=== PATIENT | female | born 1950 | race Two or more races ===

== ENCOUNTER 2016-05-27 09:31 | Inpatient (IN) | payer MEDICARE, OTHER ==
[~2016-05-27] VITALS: Ht 149.9 cm; Wt 66.9 kg
[~2016-05-27 09:31] MED LIST: ALEN70TA55 PO; ASPI81CH43 PO; CALCTAB25 PO; FOLI1TAB51 PO; LOSA100T27 PO; METO25TA62 PO; PANT40TA2 PO; TEMA30CA PO
[2016-05-27 10:58] LABS: Basophils # (auto) 0.1 uL; Basophils % (auto) 0.9 % (0.0-2.0); Eosinophils # (auto) 0 uL; Eosinophils % (auto) 0.2 % (0.0-7.0); Hematocrit 37.9 % (36.0-46.0); Hemoglobin 12.8 g/dL (12.2-16.2); Lymphocytes % (auto) 7.9 % (10.0-50.0); Mean Corpuscular Hemoglobin 32.5 pg (28.0-32.0); Mean Corpuscular Hgb Conc. 33.9 g/dL (32.0-36.0); Mean Platelet Volume 10.3 fL (7.4-10.4); Monocytes # (auto) 1.1 uL; Monocytes % (auto) 8.8 % (0.0-12.0); Neutrophils # (auto) 10.6 uL; Neutrophils % (auto) 82.2 % (37.0-80.0); Platelet Count (auto) 202 10^3/uL (140-450); Red Cell Distribution Width 16.3 % (11.6-16.0); White Blood Cell 12.8 10^3/uL (4.4-10.8)
[2016-05-27 11:27] LABS: Albumin 2.3 g/dL (3.4-5.0); BUN/Creatinine Ratio 16.4; Bilirubin, Total 2.3 mg/dL (0.2-1.0); Calcium 8.6 mg/dL (8.5-10.1); Total Protein 6.4 g/dL (6.4-8.2)
[2016-05-27 11:35] LABS: Potassium 2.1 mmol/L (3.5-5.1)
[2016-05-27] MEDS ORDERED: POTASSIUM CHL 10% (20 MEQ/15ML) ORAL SOLN PO ONE (11:45)
[2016-05-27] MEDS ORDERED: ONDANSETRON HCL 4 MG/2 ML VIAL ONE (11:59)
[2016-05-27] MEDS ORDERED: SODIUM CHLORIDE 0.9% 1,000 ML IVB ONE (12:03)
[2016-05-27] MEDS ORDERED: ONDANSETRON HCL 4 MG/2 ML VIAL IV ONE (12:15)
[2016-05-27 12:50] LABS: Magnesium 2.3 mg/dL (1.6-2.6)
[2016-05-27 14:13] LABS: Urine Bilirubin Negative (Negative); Urine Color Yellow (Yellow); Urine Glucose Normal (Normal); Urine Ketone Negative (Negative); Urine Nitrite Negative (Negative); Urine RBC 7 /hpf (0 - 4); Urine Squamous Epithelial Cell MOD /hpf (<5); Urine WBC Clumps PRESENT /hpf (None Seen)
[2016-05-27 14:15] LABS: Urine Blood 1+ /uL (Negative)
[2016-05-27] MEDS ORDERED: cefTRIAXone 1GM/50ML D5W 50 ML IV ONE (16:00)
[2016-05-27] MEDS ORDERED: TEMAZEPAM 15 MG CAP PO PRN (17:00)
[2016-05-27] MEDS ORDERED: cloNIDine HCL 0.1 MG TAB PO PRN (17:00)
[2016-05-27] MEDS ORDERED: MORPHINE SULF INJ 2 MG/ML SYRINGE 1ML IV PRN (17:00)
[2016-05-27] MEDS ORDERED: DOCUSATE SOD 100 MG CAP PO PRN (17:00)
[2016-05-27] MEDS ORDERED: PANTOPRAZOLE SODIUM 40 MG/10 ML VIAL IV ONE (17:00)
[2016-05-27] MEDS ORDERED: ACETAMINOPHEN 325 MG TAB PO PRN (17:00)
[2016-05-27] MEDS ORDERED: FOLIC ACID 1 MG TAB PO ONE (17:30)
[2016-05-27] MEDS ORDERED: MULTIPLE VITAMIN TAB PO ONE (17:30)
[2016-05-27] MEDS: CALCIUM W/VIT D (600MG/400IU) TAB PO SCH (17:41)
[2016-05-27] MEDS: SODIUM CHLORIDE 0.9% 1,000 ML IV SCH (17:41)
[2016-05-27 21:10] LABS: Calcium 8.2 mg/dL (8.5-10.1)
[2016-05-27 21:13] LABS: BUN/Creatinine Ratio 12.5
[2016-05-27 21:15] LABS: Potassium 2.4 mmol/L (3.5-5.1)
[2016-05-27 21:39] VITALS: BP 102/64
[2016-05-27] MEDS: HYDROcodone-ACET 5/325MG TAB PO PRN (21:49)
[2016-05-27] MEDS: metroNIDAZOLE 500MG/100ML 100 ML IV SCH (21:50)
[2016-05-27 22:00] VITALS: BP 113/66
[2016-05-27] MEDS ORDERED: FAMOTIDINE 20 MG TAB PO SCH (22:00)
[2016-05-27] MEDS ORDERED: POTASSIUM CHL 20MEQ/100ML 100 ML IV ONE ×2 (22:15→23:15)
[2016-05-27] MEDS ORDERED: POTASSIUM CHL 20 Meq TABLET PO ONE (22:15)
[2016-05-28] MEDS: ONDANSETRON HCL 4 MG/2 ML VIAL IV PRN ×3 (00:33→17:11)
[2016-05-28] MEDS: SODIUM CHLORIDE 0.9% 1,000 ML IV SCH ×3 (01:16→17:10)
[2016-05-28 05:00] VITALS: BP 100/68
[2016-05-28] MEDS: metroNIDAZOLE 500MG/100ML 100 ML IV SCH ×3 (06:31→22:01)
[2016-05-28] MEDS: HYDROcodone-ACET 5/325MG TAB PO PRN ×3 (06:39→21:34)
[2016-05-28 06:42] LABS: Basophils # (auto) 0 uL; Basophils % (auto) 0.3 % (0.0-2.0); Eosinophils # (auto) 0.1 uL; Eosinophils % (auto) 0.8 % (0.0-7.0); Hemoglobin 11.6 g/dL (12.2-16.2); Lymphocytes # (auto) 1.9 uL; Lymphocytes % (auto) 18.7 % (10.0-50.0); Mean Corpuscular Hemoglobin 32.7 pg (28.0-32.0); Mean Corpuscular Volume 96.1 fL (80.0-100.0); Mean Platelet Volume 11.1 fL (7.4-10.4); Monocytes # (auto) 1.4 uL; Monocytes % (auto) 14.1 % (0.0-12.0); Neutrophils # (auto) 6.8 uL; Neutrophils % (auto) 66.1 % (37.0-80.0); Platelet Count (auto) 198 10^3/uL (140-450); Red Cell Distribution Width 16.6 % (11.6-16.0); White Blood Cell 10.3 10^3/uL (4.4-10.8)
[2016-05-28] MEDS: CALCIUM W/VIT D (600MG/400IU) TAB PO SCH ×2 (08:00→17:11)
[2016-05-28 08:19] VITALS: BP 107/67
[2016-05-28 08:40] LABS: BUN/Creatinine Ratio 14.5; Bilirubin, Total 1.7 mg/dL (0.2-1.0); Calcium 8.1 mg/dL (8.5-10.1); Potassium 3.5 mmol/L (3.5-5.1); Total Protein 5.6 g/dL (6.4-8.2)
[2016-05-28] MEDS: PANTOPRAZOLE SODIUM 40 MG/10 ML VIAL IV SCH (09:17)
[2016-05-28] MEDS: cefTRIAXone 1GM/50ML D5W 50 ML IV SCH (09:18)
[2016-05-28] MEDS: METOPROLOL SUCCINATE XL 50 MG TAB PO SCH (09:20)
[2016-05-28] MEDS: FOLIC ACID 1 MG TAB PO SCH (09:20)
[2016-05-28] MEDS: MULTIPLE VITAMIN TAB PO SCH (09:20)
[2016-05-28] MEDS: LOSARTAN POTASSIUM 50 MG TAB PO SCH (09:21)
[2016-05-28 12:44] VITALS: BP 104/64
[2016-05-28] MEDS: BOOST PLUS 8 ounce PO SCH ×3 (15:17→21:36)
[2016-05-28 17:11] VITALS: BP 102/65
[2016-05-28 22:00] VITALS: BP 131/75
[2016-05-29] MEDS: SODIUM CHLORIDE 0.9% 1,000 ML IV SCH ×2 (02:16→11:57)
[2016-05-29 05:00] VITALS: BP 106/65
[2016-05-29] MEDS: HYDROcodone-ACET 5/325MG TAB PO PRN (05:51)
[2016-05-29] MEDS: metroNIDAZOLE 500MG/100ML 100 ML IV SCH ×2 (05:51→13:21)
[2016-05-29] MEDS: BOOST PLUS 8 ounce PO SCH (06:29)
[2016-05-29 07:01] LABS: Basophils # (auto) 0 uL; Basophils % (auto) 0.6 % (0.0-2.0); Eosinophils # (auto) 0.1 uL; Eosinophils % (auto) 1.4 % (0.0-7.0); Hematocrit 34.7 % (36.0-46.0); Hemoglobin 11.5 g/dL (12.2-16.2); Lymphocytes # (auto) 1.7 uL; Mean Corpuscular Hemoglobin 32.4 pg (28.0-32.0); Mean Corpuscular Hgb Conc. 33.2 g/dL (32.0-36.0); Mean Corpuscular Volume 97.7 fL (80.0-100.0); Mean Platelet Volume 9.9 fL (7.4-10.4); Monocytes # (auto) 0.9 uL; Neutrophils # (auto) 5.6 uL; Platelet Count (auto) 247 10^3/uL (140-450); White Blood Cell 8.4 10^3/uL (4.4-10.8)
[2016-05-29 07:22] LABS: Albumin 2.1 g/dL (3.4-5.0); BUN/Creatinine Ratio 10.3; Bilirubin, Total 1.1 mg/dL (0.2-1.0); Calcium 8.3 mg/dL (8.5-10.1); Total Protein 5.8 g/dL (6.4-8.2)
[2016-05-29] MEDS: cefTRIAXone 1GM/50ML D5W 50 ML IV SCH (08:54)
[2016-05-29] MEDS: CALCIUM W/VIT D (600MG/400IU) TAB PO SCH (08:54)
[2016-05-29 09:00] VITALS: BP 106/72
[2016-05-29] MEDS: MULTIPLE VITAMIN TAB PO SCH (09:03)
[2016-05-29] MEDS: FOLIC ACID 1 MG TAB PO SCH (09:03)
[2016-05-29] MEDS: PANTOPRAZOLE SODIUM 40 MG/10 ML VIAL IV SCH (09:04)
[2016-05-29] MEDS: METOPROLOL SUCCINATE XL 50 MG TAB PO SCH (11:56)
[2016-05-29] MEDS: LOSARTAN POTASSIUM 50 MG TAB PO SCH (11:58)
[2016-05-29 13:00] VITALS: BP 115/72
[2016-05-29 17:44] VITALS: BP 136/89
[2016-06-01] MEDS ORDERED: ALENDRONATE SODIUM 10 MG TAB PO SCH (06:30)
== END 2016-05-29 18:05 | disposition home or self-care (01) | DRG 393 ==
LOC: ER 09:41 → OVERFLOW 09:42 → EAST 18:02 → WEST WING 18:33
PROVIDERS: ADMIT Internal Medicine; ATTEND Internal Medicine
DX: D13.1 Benign neoplasm of stomach (principal); E43 Unspecified severe protein-calorie malnutrition; N12 Tubulo-interstitial nephritis, not specified as acute or chronic; E87.1 Hypo-osmolality and hyponatremia; N39.0 Urinary tract infection, site not specified; R19.09 Other intra-abdominal and pelvic swelling, mass and lump; E86.0 Dehydration; E87.6 Hypokalemia; F41.9 Anxiety disorder, unspecified; I10 Essential (primary) hypertension; K31.9 Disease of stomach and duodenum, unspecified; K21.9 Gastro-esophageal reflux disease without esophagitis; K76.0 Fatty (change of) liver, not elsewhere classified; M81.0 Age-related osteoporosis without current pathological fracture; Z83.3 Family history of diabetes mellitus; Z88.5 Allergy status to narcotic agent; Z68.29 Body mass index [BMI] 29.0-29.9, adult
CPT/HCPCS: 36415; 71020; 74176; 76705; 80048; 80053; 81001; 82150; 83690; 83735; 85025; 85049; 87086; 87088; 87186; 87493; 93005; 94761; 96365; 96366; 96375; C9113; J0696; J2405; J3480; J3490

== ENCOUNTER → 2016-06-08 | Outpatient (CLI) | payer MEDICARE, OTHER | END | disposition home or self-care (01) | LOC: XY 08:37 | DX: R94.5 Abnormal results of liver function studies (principal) | CPT/HCPCS: 78306; A9503 ==

== ENCOUNTER 2016-06-15 12:07 | Emergency (ER) | payer MEDICARE, OTHER ==
[~2016-06-15] VITALS: Ht 149.9 cm; Wt 63.5 kg
[2016-06-15 12:17] VITALS: BP 161/86
[2016-06-15] MEDS ORDERED: diphenhdrAMINE HCL 50 MG/1 ML VL IM ONE (14:00)
== END 2016-06-15 14:06 | disposition home or self-care (01) ==
LOC: ER 12:07
DX: R21 Rash and other nonspecific skin eruption (principal); T36.8X5A Adverse effect of other systemic antibiotics, initial encounter; N39.0 Urinary tract infection, site not specified; F14.10 Cocaine abuse, uncomplicated; K21.9 Gastro-esophageal reflux disease without esophagitis; I10 Essential (primary) hypertension; Z88.6 Allergy status to analgesic agent; Z79.82 Long term (current) use of aspirin
CPT/HCPCS: 96372; 99283; J1200

== ENCOUNTER → 2016-08-01 | Outpatient (CLI) | payer MEDICARE, OTHER ==
[2016-08-01 16:00] LABS: Basophils # (auto) 0 uL; Basophils % (auto) 0.4 % (0.0-2.0); Eosinophils # (auto) 0.4 uL; Eosinophils % (auto) 5.5 % (0.0-7.0); Hematocrit 36.7 % (36.0-46.0); Hemoglobin 12.5 g/dL (12.2-16.2); Lymphocytes # (auto) 2.2 uL; Lymphocytes % (auto) 28.4 % (10.0-50.0); Mean Corpuscular Hemoglobin 32.8 pg (28.0-32.0); Mean Corpuscular Hgb Conc. 34.1 g/dL (32.0-36.0); Mean Corpuscular Volume 96.2 fL (80.0-100.0); Mean Platelet Volume 9.3 fL (7.4-10.4); Monocytes # (auto) 0.8 uL; Neutrophils # (auto) 4.2 uL; Neutrophils % (auto) 55.7 % (37.0-80.0); Platelet Count (auto) 212 10^3/uL (140-450); Red Cell Distribution Width 14.5 % (11.6-16.0); White Blood Cell 7.6 10^3/uL (4.4-10.8)
[2016-08-01 16:22] LABS: Albumin 3.6 g/dL (3.4-5.0); BUN/Creatinine Ratio 15.7; Calcium 8.9 mg/dL (8.5-10.1); Potassium 3.5 mmol/L (3.5-5.1)
[2016-08-01 16:25] LABS: Bilirubin, Total 0.6 mg/dL (0.2-1.0); Total Protein 7.6 g/dL (6.4-8.2)
[2016-08-01 16:36] LABS: Urine Bilirubin Negative (Negative); Urine Blood Negative /uL (Negative); Urine Color Yellow (Yellow); Urine Glucose Normal (Normal); Urine Ketone Negative (Negative); Urine Nitrite Negative (Negative); Urine RBC <1 /hpf (0 - 4); Urine Squamous Epithelial Cell FEW /hpf (<5); Urine Urobilinogen Normal (Negative)
[2016-08-01 16:42] LABS: INR 1.01 (0.9-1.15); Partial Thromboplastin Time 25.9 sec (22.64-33.71); Prothrombin Time 10.9 sec (9.37-12.3)
== END | disposition home or self-care (01) ==
LOC: LAB 15:36
DX: Z01.818 Encounter for other preprocedural examination (principal)
CPT/HCPCS: 36415; 80053; 81001; 85025; 85610; 85730

== ENCOUNTER → 2016-09-28 | Outpatient (CLI) | payer MEDICARE, OTHER ==
[2016-09-28 09:02] LABS: Urine Bilirubin Negative (Negative); Urine Blood Negative /uL (Negative); Urine Color Yellow (Yellow); Urine Glucose Normal (Normal); Urine Ketone Negative (Negative); Urine Nitrite Negative (Negative); Urine RBC <1 /hpf (0 - 4); Urine Squamous Epithelial Cell FEW /hpf (<5); Urine Urobilinogen Normal (Negative)
[2016-09-28 09:04] LABS: Basophils # (auto) 0.1 uL; Eosinophils # (auto) 0.3 uL; Eosinophils % (auto) 4.2 % (0.0-7.0); Hematocrit 40.2 % (36.0-46.0); Hemoglobin 13.4 g/dL (12.2-16.2); Lymphocytes # (auto) 2.7 uL; Lymphocytes % (auto) 44.5 % (10.0-50.0); Mean Corpuscular Hemoglobin 32.7 pg (28.0-32.0); Mean Corpuscular Hgb Conc. 33.4 g/dL (32.0-36.0); Mean Corpuscular Volume 97.9 fL (80.0-100.0); Mean Platelet Volume 10.1 fL (7.4-10.4); Monocytes # (auto) 0.5 uL; Monocytes % (auto) 7.9 % (0.0-12.0); Neutrophils # (auto) 2.6 uL; Neutrophils % (auto) 42.4 % (37.0-80.0); Platelet Count (auto) 252 10^3/uL (140-450); Red Cell Distribution Width 16.7 % (11.6-16.0)
[2016-09-28 09:18] LABS: Albumin 3.3 g/dL (3.4-5.0); BUN/Creatinine Ratio 11.5; Bilirubin, Total 0.7 mg/dL (0.2-1.0); Calcium 9.3 mg/dL (8.5-10.1); Potassium 3.9 mmol/L (3.5-5.1); Total Protein 7.6 g/dL (6.4-8.2)
[2016-09-28 09:29] LABS: Hepatitis B Surface Antibody Negative
== END | disposition home or self-care (01) ==
LOC: LAB 07:34
DX: R94.5 Abnormal results of liver function studies (principal); I10 Essential (primary) hypertension; Z12.11 Encounter for screening for malignant neoplasm of colon
CPT/HCPCS: 36415; 80053; 80061; 81001; 84443; 85025; 85652; 86704; 86706; 86708; 86803; 87340

== ENCOUNTER → 2016-11-15 | Outpatient (CLI) | payer MEDICARE, OTHER ==
[2016-11-15 12:14] LABS: Basophils # (auto) 0.1 uL; Basophils % (auto) 0.8 % (0.0-2.0); CONDITION Y; Eosinophils # (auto) 0.2 uL; Eosinophils % (auto) 3.1 % (0.0-7.0); Hematocrit 38.4 % (36.0-46.0); Hemoglobin 13.1 g/dL (12.2-16.2); Lymphocytes # (auto) 2.6 uL; Lymphocytes % (auto) 39.3 % (10.0-50.0); Mean Corpuscular Hemoglobin 33.5 pg (28.0-32.0); Mean Corpuscular Hgb Conc. 34.1 g/dL (32.0-36.0); Mean Corpuscular Volume 98.2 fL (80.0-100.0); Mean Platelet Volume 10.4 fL (7.4-10.4); Monocytes # (auto) 0.5 uL; Monocytes % (auto) 7.3 % (0.0-12.0); Neutrophils # (auto) 3.2 uL; Neutrophils % (auto) 49.5 % (37.0-80.0); Platelet Count (auto) 197 10^3/uL (140-450); Red Cell Distribution Width 14.3 % (11.6-16.0); White Blood Cell 6.6 10^3/uL (4.4-10.8)
[2016-11-15 12:30] LABS: INR 0.98 (0.9-1.15); Partial Thromboplastin Time 26.8 sec (22.64-33.71); Prothrombin Time 10.7 sec (9.37-12.3)
[2016-11-15 12:43] LABS: Albumin 3.4 g/dL (3.4-5.0); BUN/Creatinine Ratio 18.5; Bilirubin, Total 0.6 mg/dL (0.2-1.0); Potassium 4.6 mmol/L (3.5-5.1); Total Protein 7.3 g/dL (6.4-8.2)
[2016-11-15 13:29] LABS: Urine Bilirubin Negative (Negative); Urine Blood Negative /uL (Negative); Urine Color Yellow (Yellow); Urine Glucose Normal (Normal); Urine Ketone Negative (Negative); Urine Mucus FEW (None Seen); Urine Nitrite Negative (Negative); Urine RBC <1 /hpf (0 - 4); Urine Squamous Epithelial Cell FEW /hpf (<5); Urine Urobilinogen Normal (Negative); Urine pH 7.5 (5.0-8.0)
== END | disposition home or self-care (01) ==
LOC: LAB 11:48
PROVIDERS: ATTEND Internal Medicine
DX: Z01.31 Encounter for examination of blood pressure with abnormal findings (principal); I10 Essential (primary) hypertension
CPT/HCPCS: 36415; 80053; 81001; 85025; 85610; 85730

== ENCOUNTER 2018-05-29 16:46 | Emergency (ER) | payer MEDICARE, OTHER ==
[~2018-05-29] VITALS: Ht 149.9 cm; Wt 72.6 kg
[~2018-05-29 16:46] MED LIST changes: +ALEN1TAB32 PO; -ALEN70TA55 PO; +LOSA-49 PO; -LOSA100T27 PO
[2018-05-29 16:51] VITALS: BP 143/90
[2018-05-29 17:15] LABS: Basophils # (auto) 0.1 uL; Eosinophils # (auto) 0 uL; Eosinophils % (auto) 0.5 % (0.0-7.0); Hematocrit 43.5 % (36.0-46.0); Hemoglobin 14.8 g/dL (12.2-16.2); Lymphocytes # (auto) 1.4 uL; Lymphocytes % (auto) 18.3 % (10.0-50.0); Mean Corpuscular Hemoglobin 32.2 pg (28.0-32.0); Mean Corpuscular Volume 94.9 fL (80.0-100.0); Monocytes # (auto) 0.6 uL; Monocytes % (auto) 7.6 % (0.0-12.0); Neutrophils # (auto) 5.5 uL; Neutrophils % (auto) 72.6 % (37.0-80.0); Platelet Count (auto) 192 10^3/uL (140-450); Red Blood Cells 4.58 10^6/uL (4.0-5.20); Red Cell Distribution Width 15.9 % (11.8-14.3); White Blood Cell 7.6 10^3/uL (4.4-10.8)
[2018-05-29 17:33] LABS: Alanine Aminotransferase 62 U/L (13-56); Albumin 3.7 g/dL (3.4-5.0); Amylase 40 U/L (25-115); Anion Gap 16 (5-15); Aspartate Aminotransferase 127 U/L (15-37); BUN/Creatinine Ratio 6.1; Blood Urea Nitrogen 5 mg/dL (7-18); Calcium 8.1 mg/dL (8.5-10.1); Carbon Dioxide 21 mmol/L (21-32); Chloride 86 mmol/L (98-107); GFR African American > 60 mL/min; GFR Non-African American > 60 mL/min; Glucose 77 mg/dL (74-106); Lipase 184 U/L (73-393); Magnesium 2.3 mg/dL (1.6-2.6); Potassium 3.8 mmol/L (3.5-5.1); Sodium 123 mmol/L (136-145)
[2018-05-29 17:38] LABS: Alkaline Phosphatase 163 U/L (45-117); Bilirubin, Total 1.4 mg/dL (0.2-1.0); Total Protein 7.9 g/dL (6.4-8.2)
== END 2018-05-30 00:35 | disposition left against medical advice (07) ==
LOC: ER 16:52
DX: R10.9 Unspecified abdominal pain (principal); R11.2 Nausea with vomiting, unspecified; M54.9 Dorsalgia, unspecified; Z53.21 Procedure and treatment not carried out due to patient leaving prior to being seen by health care provider
CPT/HCPCS: 36415; 74176; 80053; 82150; 83690; 83735; 84484; 85025; 93005

== ENCOUNTER 2019-09-22 07:26 | Inpatient (IN) | payer MEDICARE, OTHER ==
[~2019-09-22] VITALS: Ht 149.9 cm; Wt 77.1 kg
[~2019-09-22 07:26] MED LIST changes: +LOSA-39 PO; -LOSA-49 PO; -METO25TA62 PO; +METO25TA93 PO
[2019-09-22] MEDS ORDERED: SODIUM CHLORIDE 0.9% 1,000 ML IV ONE (07:41)
[2019-09-22] MEDS ORDERED: ONDANSETRON HCL 4 MG/2 ML VIAL IV ONE (07:45)
[2019-09-22 08:08] LABS: Basophils # (auto) 0.1 10 ^3/uL (0-0.2); Basophils % (auto) 1.6 % (0.0-2.0); Eosinophils # (auto) 0.2 10 ^3/uL (0-0.8); Eosinophils % (auto) 3.9 % (0.0-7.0); Hematocrit 45.2 % (36.0-46.0); Hemoglobin 15.1 g/dL (12.2-16.2); Lymphocytes # (auto) 2.4 10 ^3/uL (0.4-5.4); Lymphocytes % (auto) 47.1 % (10.0-50.0); Mean Corpuscular Hemoglobin 31.9 pg (28.0-32.0); Mean Corpuscular Hgb Conc. 33.3 g/dL (32.0-36.0); Monocytes # (auto) 0.9 10 ^3/uL (0-1.3); Monocytes % (auto) 16.8 % (0.0-12.0); Neutrophils # (auto) 1.6 10 ^3/uL (1.6-8.6); Neutrophils % (auto) 30.6 % (37.0-80.0); Nucleated Red Blood Cells % 0.1 %; Platelet Count (auto) 157 10^3/uL (140-450); Red Blood Cells 4.72 10^6/uL (4.0-5.20); White Blood Cell 5.1 10^3/uL (4.4-10.8)
[2019-09-22 08:09] LABS: Red Cell Distribution Width 20.3 % (11.8-14.3)
[2019-09-22 08:24] LABS: Albumin 3.4 g/dL (3.4-5.0); Anion Gap 5 (5-15); Blood Urea Nitrogen 3 mg/dL (7-18); Carbon Dioxide 30 mmol/L (21-32); Chloride 101 mmol/L (98-107); Glucose 123 mg/dL (74-106); Sodium 136 mmol/L (136-145)
[2019-09-22 08:29] LABS: Alanine Aminotransferase 131 U/L (13-56); Alkaline Phosphatase 172 U/L (45-117); Aspartate Aminotransferase 180 U/L (15-37); BUN/Creatinine Ratio 4.1; Bilirubin, Total 1.4 mg/dL (0.2-1.0); GFR African American 99 mL/min; GFR Non-African American 82 mL/min
[2019-09-22 08:33] LABS: Potassium 2.9 mmol/L (3.5-5.1)
[2019-09-22] MEDS ORDERED: POTASSIUM EFFERVESENT TAB 25 MEQ PO ONE (08:45)
[2019-09-22] MEDS ORDERED: PANTOPRAZOLE 40 MG TAB PO SCH (10:00)
[2019-09-22] MEDS ORDERED: hydrALAZINE HCL 20 MG/ML VL IV PRN (10:00)
[2019-09-22] MEDS ORDERED: NITROGLYCERIN 0.4 MG SL TAB SL PRN (10:00)
[2019-09-22] MEDS ORDERED: MORPHINE SULF INJ 2 MG/ML SYRINGE 1ML IV PRN ×2 (10:00)
[2019-09-22] MEDS ORDERED: HYDROcodone-ACET 5/325MG TAB PO PRN (10:00)
[2019-09-22 10:21] LABS: Bilirubin, Direct 0.6 mg/dL (0-0.2)
[2019-09-22] MEDS: PARoxetine 20 MG TAB PO SCH (11:15)
--- NOTE | 2019-09-22 11:40 | NUR ---
PATIENT BROUGHT TO ROOM FROM ER. PATIENT ORIENTED TO ROOM, CALL LIGHT WITHIN REACH, BED IN LOCKED AND LOWEST POSITION AND 2X SIDE RAILS UP. VS 147/83, 90%, 18, 98.2, 18. NO COMPLAINTS OF PAIN. WILL CONTINUE TO MONITOR.
[2019-09-22 12:30] LABS: Urine Bacteria NONE SEEN /hpf (None Seen); Urine Blood Negative /uL (Negative); Urine Specific Gravity 1.004 (1.001-1.035); Urine WBC <1 /hpf (0 - 5)
[2019-09-22 12:41] VITALS: BP 147/83
[2019-09-22] MEDS ORDERED: LEVO25TA6 PO (13:07)
[2019-09-22] MEDS ORDERED: PAR20T PO (13:07)
[2019-09-22] MEDS ORDERED: SPIR25TA8 PO (13:07)
[2019-09-22] MEDS ORDERED: ALEN1TAB32 PO (13:07)
[2019-09-22] MEDS ORDERED: GABA100C9 PO (13:07)
[2019-09-22 16:47] VITALS: BP 110/67
--- NOTE | 2019-09-22 19:00 | NUR ---
Opening Shift Note Assumed care of patient, awake and alert. No S/S of distress/SOB or pain. Instructed on POC and to call for assist PRN, will continue to monitor for changes Q1hr and PRN. Patient in the lowest possible position with bed rails up x2 and call light within reach. Patient stated that she got a little nauseous after eating her dinner of clear liquids, patient did not want any zofran stating that it has gone away now. Patient to be NPO after midnight. Patient is aware and understands. Procedure in the morning.
[2019-09-22 20:00] VITALS: BP 153/95
[2019-09-22 22:00] VITALS: BP 153/95
[2019-09-22] MEDS: PANTOPRAZOLE 40 MG TAB PO SCH (22:17)
[2019-09-23] VITALS (7 sets, daily range): BP systolic 120–151; BP diastolic 64–79
[2019-09-23] MEDS: LEVOTHYROXINE SODIUM 25 MCG TAB PO SCH (06:08)
[2019-09-23 06:33] LABS: Potassium 3.4 mmol/L (3.5-5.1)
[2019-09-23 06:43] LABS: Albumin 2.8 g/dL (3.4-5.0); BUN/Creatinine Ratio 8.2; Calcium 8.3 mg/dL (8.5-10.1); Magnesium 2.3 mg/dL (1.6-2.6); Total Protein 6.6 g/dL (6.4-8.2)
--- NOTE | 2019-09-23 06:50 | NUR ---
Closing note patient in the lowest possible position with call light within reach. patient does not complain of pain at this time, ready to go down for EGD. Will endorse to day shift ZOEY Reza
[2019-09-23 08:52] LABS: INR 1.13 (0.9-1.15); Partial Thromboplastin Time 26.2 sec (23.64-32.05)
[2019-09-23] MEDS ORDERED: LIDOCAINE VISCOUS 2% 15ML UD ONE (09:05)
[2019-09-23] MEDS ORDERED: SODIUM CHLORIDE LOCK 10 ML ONE (09:05)
--- NOTE | 2019-09-23 09:05 | NUR ---
PATIENT OFF FLOOR FOR EGD
[2019-09-23] MEDS ORDERED: diphenhdrAMINE HCL 50 MG/1 ML VL ONE (09:06)
[2019-09-23] MEDS: fentaNYL CITRATE 100 MCG/2 ML VL ONE ×2 (09:26→09:29)
[2019-09-23] MEDS: MIDAZOLAM HCL 5 MG/ML-1ML VIAL ONE ×2 (09:26→09:29)
[2019-09-23] MEDS: PARoxetine 20 MG TAB PO SCH (10:29)
[2019-09-23] MEDS: PANTOPRAZOLE 40 MG TAB PO SCH ×2 (10:29→22:02)
[2019-09-23] MEDS: FOLIC ACID 1 MG TAB PO SCH (10:29)
[2019-09-23] MEDS: THIAMINE HCL 100 MG TAB PO SCH (10:29)
[2019-09-23] MEDS: MULTIPLE VITAMIN TAB PO SCH (10:29)
[2019-09-23] MEDS: SUCRALFATE 1 GM/10 ML ORAL SUSP PO SCH ×3 (12:08→22:02)
--- NOTE | 2019-09-23 12:44 | NUR ---
DR Codi HASSAN BEDSIDE WITH PATIENT DISCUSSING PLAN OF CARE. NEW ORDERS RECEIVED AND CARRIED OUT
[2019-09-23] MEDS ORDERED: POTASSIUM CHL 20 Meq TABLET PO ONE (13:00)
--- NOTE | 2019-09-23 19:00 | NUR ---
Opening Shift Note Assumed care of patient, awake and alert. No S/S of distress/SOB or pain. Instructed on POC and to call for assist PRN, will continue to monitor for changes Q1hr and PRN. Patient in the lowest possible position with call light within reach. Patient complains of mild nausea. Will administer zofran and reassess patient.
[2019-09-23] MEDS: ONDANSETRON HCL 4 MG/2 ML VIAL IV PRN (19:39)
[2019-09-24 05:00] VITALS: BP 126/75
[2019-09-24] MEDS: SUCRALFATE 1 GM/10 ML ORAL SUSP PO SCH ×4 (06:32→21:42)
[2019-09-24] MEDS: LEVOTHYROXINE SODIUM 25 MCG TAB PO SCH (06:33)
[2019-09-24 06:34] LABS: Albumin 2.6 g/dL (3.4-5.0); BUN/Creatinine Ratio 6.5; Calcium 8.1 mg/dL (8.5-10.1); Potassium 3.8 mmol/L (3.5-5.1)
[2019-09-24 06:37] LABS: Total Protein 6.3 g/dL (6.4-8.2)
[2019-09-24] MEDS: ONDANSETRON HCL 4 MG/2 ML VIAL IV PRN (06:43)
[2019-09-24 08:53] VITALS: BP 146/75
[2019-09-24] MEDS: FOLIC ACID 1 MG TAB PO SCH (09:39)
[2019-09-24] MEDS: THIAMINE HCL 100 MG TAB PO SCH (09:39)
[2019-09-24] MEDS: MULTIPLE VITAMIN TAB PO SCH (09:40)
[2019-09-24] MEDS: PARoxetine 20 MG TAB PO SCH (09:40)
[2019-09-24] MEDS: PANTOPRAZOLE 40 MG TAB PO SCH ×2 (09:40→21:42)
[2019-09-24] MEDS: PROMETHAZINE HCL 25 MG/ML 1ML IV PRN (10:53)
[2019-09-24 12:39] VITALS: BP 143/88
[2019-09-24 16:22] VITALS: BP 139/88
[2019-09-24] MEDS: ACETAMINOPHEN 500 MG TAB PO PRN (17:55)
--- NOTE | 2019-09-24 19:00 | NUR ---
Opening Shift Note Assumed care of patient, awake and alert. No S/S of distress/SOB or pain. Instructed on POC and to call for assist PRN, will continue to monitor for changes Q1hr and PRN. Patient in the lowest possible position with call light within reach. Patient complained of mild nausea at this time, no medication requested from patient. Will continue to monitor nausea.
[2019-09-24 20:00] VITALS: BP 150/78
[2019-09-24 22:00] VITALS: BP 150/78
[2019-09-25] MEDS: ACETAMINOPHEN 500 MG TAB PO PRN (04:25)
--- NOTE | 2019-09-25 04:25 | NUR ---
Patient complains of pain Patient has a headache, rating her pain a 4/10. Patient requested Tylenol for the pain as patient normally will take Tylenol for this type of pain. Will administer and continue to monitor.
[2019-09-25 05:00] VITALS: BP 120/71
[2019-09-25 05:58] LABS: Potassium 3.2 mmol/L (3.5-5.1)
[2019-09-25 06:04] LABS: Albumin 2.8 g/dL (3.4-5.0); BUN/Creatinine Ratio 4.9; Bilirubin, Total 1.2 mg/dL (0.2-1.0); Calcium 7.9 mg/dL (8.5-10.1); Total Protein 6.5 g/dL (6.4-8.2)
[2019-09-25] MEDS: LEVOTHYROXINE SODIUM 25 MCG TAB PO SCH (06:30)
[2019-09-25] MEDS: SUCRALFATE 1 GM/10 ML ORAL SUSP PO SCH ×2 (06:30→11:25)
--- NOTE | 2019-09-25 06:55 | NUR ---
Closing note. Patient in the lowest possible position with bed rails up x2 and call light within reach. Patient does not complain of pain at this time. Patient does state that she has slight nausea but does not want medications at this time. Will endorse to day shift RN.
[2019-09-25 08:14] VITALS: BP 131/69
[2019-09-25] MEDS: PROMETHAZINE HCL 25 MG/ML 1ML IV PRN (09:16)
[2019-09-25] MEDS: MULTIPLE VITAMIN TAB PO SCH (10:09)
[2019-09-25] MEDS: FOLIC ACID 1 MG TAB PO SCH (10:09)
[2019-09-25] MEDS: PARoxetine 20 MG TAB PO SCH (10:09)
[2019-09-25] MEDS: THIAMINE HCL 100 MG TAB PO SCH (10:09)
[2019-09-25] MEDS: PANTOPRAZOLE 40 MG TAB PO SCH (10:10)
[2019-09-25 12:30] VITALS: BP 156/74
--- NOTE | 2019-09-25 12:54 | NUR ---
Discharge Went over discharge paperwork with patient. Gave prescription to patient. Removed IV intact, no problems. Removed telemetry and sent to ICU per hospital protocol. Patient is eating lunch. Family coming from 45 minutes away; waiting for ride. Patient was informed to follow up with her PCP in a week and with Dr. Hebert in 10 days. She verbalized acknowledgement.
== END 2019-09-25 15:20 | disposition home or self-care (01) | DRG 392 ==
LOC: ER 07:26 → TELE 07:27 → TELE-WESTW 10:44
PROVIDERS: ADMIT Nurse Practitioner Acute Care; ATTEND Family Medicine
PROC: 0DJ08ZZ Inspection of Upper Intestinal Tract, Via Natural or Artificial Opening Endoscopic (ICD-10-PCS; principal; 2019-09-23 09:23)
DX: K29.70 Gastritis, unspecified, without bleeding (principal); I10 Essential (primary) hypertension; K21.9 Gastro-esophageal reflux disease without esophagitis; E87.6 Hypokalemia; E03.9 Hypothyroidism, unspecified; M81.0 Age-related osteoporosis without current pathological fracture; F10.20 Alcohol dependence, uncomplicated; F32.9 Major depressive disorder, single episode, unspecified; F41.9 Anxiety disorder, unspecified; K57.30 Diverticulosis of large intestine without perforation or abscess without bleeding; K70.30 Alcoholic cirrhosis of liver without ascites; Z88.6 Allergy status to analgesic agent; Z79.899 Other long term (current) drug therapy; Z79.82 Long term (current) use of aspirin; Z82.49 Family history of ischemic heart disease and other diseases of the circulatory system; Z80.0 Family history of malignant neoplasm of digestive organs; Z98.51 Tubal ligation status
CPT/HCPCS: 36415; 43235; 71045; 74176; 76705; 80053; 81001; 82248; 83690; 83735; 83880; 84443; 84484; 85025; 85610; 85730; 87086; 93005; 96361; 96374; G0378; J2250; J2405

== ENCOUNTER 2019-10-12 11:02 | Emergency (ER) | payer MEDICARE, OTHER ==
[~2019-10-12] VITALS: Ht 149.9 cm; Wt 77.1 kg
[~2019-10-12 11:02] MED LIST changes: +GABA100C9 PO; +LEVO25TA6 PO; +PAR20T PO; +SPIR25TA8 PO
[2019-10-12 11:14] VITALS: BP 123/94
[2019-10-12] MEDS ORDERED: ACETAMINOPHEN 500 MG TAB PO ONE (11:30)
== END 2019-10-12 13:45 | disposition home or self-care (01) ==
LOC: ER 11:02
DX: M54.16 Radiculopathy, lumbar region (principal); M25.562 Pain in left knee; K21.9 Gastro-esophageal reflux disease without esophagitis; I10 Essential (primary) hypertension

== ENCOUNTER 2020-02-06 19:50 | Inpatient (IN) | payer MEDICARE, OTHER ==
[~2020-02-06] VITALS: Ht 149.9 cm; Wt 74.0 kg
[2020-02-06] MEDS ORDERED: ONDANSETRON HCL 4 MG/2 ML VIAL IV ONE (20:30)
[2020-02-06] MEDS ORDERED: MORPHINE SULFATE 4 MG/ML SYR/VIAL IV ONE (20:30)
[2020-02-06 20:35] LABS: Urine WBC None Seen /hpf (0 - 5)
[2020-02-06 20:48] LABS: Urine Bacteria FEW /hpf (None Seen); Urine Blood Negative /uL (Negative); Urine Specific Gravity 1.002 (1.001-1.035)
[2020-02-06 20:55] LABS: Basophils # (auto) 0.1 10 ^3/uL (0-0.2); Basophils % (auto) 1.3 % (0.0-2.0); Eosinophils # (auto) 0.2 10 ^3/uL (0-0.8); Eosinophils % (auto) 2.7 % (0.0-7.0); Hematocrit 43.2 % (36.0-46.0); Hemoglobin 14.5 g/dL (12.2-16.2); Lymphocytes # (auto) 1.6 10 ^3/uL (0.4-5.4); Lymphocytes % (auto) 24.5 % (10.0-50.0); Mean Corpuscular Hemoglobin 32.4 pg (28.0-32.0); Mean Corpuscular Hgb Conc. 33.5 g/dL (32.0-36.0); Mean Corpuscular Volume 96.7 fL (80.0-100.0); Monocytes # (auto) 0.6 10 ^3/uL (0-1.3); Monocytes % (auto) 9.8 % (0.0-12.0); Neutrophils # (auto) 4.1 10 ^3/uL (1.6-8.6); Neutrophils % (auto) 61.7 % (37.0-80.0); Nucleated Red Blood Cells % 0.1 %; Platelet Count (auto) 252 10^3/uL (140-450); Red Blood Cells 4.47 10^6/uL (4.0-5.20); Red Cell Distribution Width 17.7 % (11.8-14.3); White Blood Cell 6.6 10^3/uL (4.4-10.8)
[2020-02-06 21:02] LABS: Amphetamine Screen, Urine NEGATIVE (NEGATIVE); Barbiturate Scree,Urine NEGATIVE (NEGATIVE); Benzodiazephine Screen, Urine NEGATIVE (NEGATIVE); Cannabinoid Screen, Urine NEGATIVE (NEGATIVE); Cocaine Screen, Urine NEGATIVE (NEGATIVE); Opiate Scree,Urine NEGATIVE (NEGATIVE); Phencyclidine Screen, Urine NEGATIVE (NEGATIVE)
[2020-02-06 21:11] LABS: Albumin 3.1 g/dL (3.4-5.0); Anion Gap 3 (5-15); Blood Urea Nitrogen 4 mg/dL (7-18); Calcium 9.2 mg/dL (8.5-10.1); Carbon Dioxide 30 mmol/L (21-32); Chloride 103 mmol/L (98-107); Glucose 92 mg/dL (74-106); Magnesium 2.2 mg/dL (1.6-2.6); Potassium 3.5 mmol/L (3.5-5.1); Sodium 136 mmol/L (136-145)
[2020-02-06 21:17] LABS: Alanine Aminotransferase 54 U/L (13-56); Alkaline Phosphatase 450 U/L (45-117); Aspartate Aminotransferase 120 U/L (15-37); BUN/Creatinine Ratio 7.3; Bilirubin, Total 0.8 mg/dL (0.2-1.0); GFR African American 140 mL/min; GFR Non-African American 115 mL/min; Total Protein 7.6 g/dL (6.4-8.2)
[2020-02-06 21:18] LABS: INR 0.97 (0.9-1.15); Partial Thromboplastin Time 26.8 sec (23.0-31.2)
[2020-02-07] MEDS ORDERED: HYDROmorphone HCL 2 MG/ML VL IV ONE
[2020-02-07] MEDS ORDERED: FUROSEMIDE 40 MG/4 ML VIAL IV ONE (00:30)
[2020-02-07] MEDS ORDERED: NITROGLYCERIN 0.4 MG SL TAB SL PRN (02:15)
[2020-02-07] MEDS ORDERED: DOCUSATE SOD 100 MG CAP PO PRN (02:15)
[2020-02-07] MEDS ORDERED: MORPHINE SULF INJ 2 MG/ML SYRINGE 1ML IV PRN (02:15)
[2020-02-07 03:45] LABS: Basophils # (auto) 0.1 10 ^3/uL (0-0.2); Eosinophils # (auto) 0.2 10 ^3/uL (0-0.8); Hematocrit 40.1 % (36.0-46.0); Hemoglobin 13.6 g/dL (12.2-16.2); Lymphocytes # (auto) 2.3 10 ^3/uL (0.4-5.4); Lymphocytes % (auto) 33.9 % (10.0-50.0); Mean Corpuscular Hemoglobin 32.6 pg (28.0-32.0); Mean Corpuscular Volume 95.8 fL (80.0-100.0); Monocytes # (auto) 0.6 10 ^3/uL (0-1.3); Monocytes % (auto) 9.5 % (0.0-12.0); Neutrophils # (auto) 3.6 10 ^3/uL (1.6-8.6); Neutrophils % (auto) 52.6 % (37.0-80.0); Nucleated Red Blood Cells % 0.1 %; Platelet Count (auto) 215 10^3/uL (140-450); Red Blood Cells 4.18 10^6/uL (4.0-5.20); Red Cell Distribution Width 17.5 % (11.8-14.3); White Blood Cell 6.8 10^3/uL (4.4-10.8)
[2020-02-07 04:02] LABS: Albumin 2.6 g/dL (3.4-5.0); BUN/Creatinine Ratio 5.3; Calcium 8.8 mg/dL (8.5-10.1); Potassium 3.7 mmol/L (3.5-5.1)
[2020-02-07 04:04] LABS: Bilirubin, Total 0.8 mg/dL (0.2-1.0)
[2020-02-07] MEDS: MORPHINE SULF INJ 2 MG/ML SYRINGE 1ML IV PRN ×3 (04:40→21:34)
[2020-02-07 05:00] VITALS: BP 132/74
[2020-02-07] MEDS: SODIUM CHLOR 0.9% PF (SALINE LOCK) 10ML VIAL/SYR IV SCH ×3 (06:00→21:24)
[2020-02-07] MEDS: GABAPENTIN 100 MG CAP PO SCH ×3 (06:43→21:23)
[2020-02-07] MEDS ORDERED: LEVOTHYROXINE SODIUM 25 MCG TAB PO SCH ×2 (07:00→12:00)
--- NOTE | 2020-02-07 08:00 | NUR ---
OPENING SHIFT NOTE ASSUMED CARE OF PATIENT AWAKE AND ALERT. NO S/S OF DISTRESS NOTED. PATIENT HAS A COMPLAINT OF 8/10 PAIN TO HER NECK AND HEAD, WILL MEDICATE PER MD ORDER AND MAR. PATIENT UPDATED ON POC FOR THE DAY AND ALL QUESTIONS ANSWERED. BED IS IN LOWEST, LOCKED POSITION WITH SIDE RAILS UP X2 AND CALL LIGHT WITHIN REACH. WILL CONTINUE TO MONITOR Q1H AND PRN.
[2020-02-07 09:00] VITALS: BP 121/70
[2020-02-07] MEDS: FUROSEMIDE 40 MG/4 ML VIAL IV SCH (09:50)
[2020-02-07] MEDS: CALCIUM W/VIT D (600MG/400IU) TAB PO SCH ×2 (09:51→21:24)
[2020-02-07] MEDS: ASPirin 81 mg TAB PO SCH (09:51)
[2020-02-07] MEDS: PARoxetine 20 MG TAB PO SCH (09:51)
[2020-02-07] MEDS: FOLIC ACID 1 MG TAB PO SCH ×2 (09:51→21:23)
[2020-02-07] MEDS ORDERED: PANTOPRAZOLE 40 MG/10 ML VIAL INJ IV SCH (10:00)
[2020-02-07] MEDS ORDERED: PANTOPRAZOLE 40 MG TAB PO SCH (10:00)
[2020-02-07] MEDS ORDERED: SPIRONOLACTONE 25 MG TAB PO SCH (10:00)
[2020-02-07] MEDS ORDERED: LEVOTHYROXINE SODIUM 100 MCG TAB PO ONE (12:30)
[2020-02-07 13:00] VITALS: BP 130/77
--- NOTE | 2020-02-07 13:00 | NUR ---
NAUSEA/VOMITING IMMEDIATELY AFTER EATING A FULL LIQUID LUNCH, PATIENT BEGAN HAVING EPISODES OF EMESIS. PAGE OUT TO DR LOPES TO NOTIFY PATIENT DID NOT TOLERATE NEW DIET ORDER. WILL CONTINUE TO MONITOR.
[2020-02-07] MEDS: SUCRALFATE 1 GM/10 ML ORAL SUSP PO SCH ×2 (16:30→21:24)
[2020-02-07 17:00] VITALS: BP 117/75
[2020-02-07] MEDS: ONDANSETRON HCL 4 MG/2 ML VIAL IV PRN ×2 (18:11→22:39)
[2020-02-07] MEDS: PANTOPRAZOLE 40 MG TAB PO SCH (21:23)
--- NOTE | 2020-02-07 21:36 | NUR ---
PAIN PATIENT PAIN LEVEL 8 ON A PAIN SCALE OF 0-10. MEDICATED FOR PAIN PER MD ORDERS. WILL CONTINUE TO MONITOR PATIENT Q1 AND PRN.
[2020-02-07 22:00] VITALS: BP 125/72
--- NOTE | 2020-02-07 22:10 | NUR ---
PAIN REASSESSMENT PATIENT PAIN LEVEL 3 AND DECREASING. WILL CONTINUE TO MONITOR Q1 AND PRN.
[2020-02-08] MEDS: TEMAZEPAM 15 MG CAP PO PRN ×2 (00:24→22:31)
[2020-02-08 04:54] VITALS: BP 119/78
[2020-02-08] MEDS: SODIUM CHLOR 0.9% PF (SALINE LOCK) 10ML VIAL/SYR IV SCH ×3 (05:13→21:57)
[2020-02-08] MEDS: LEVOTHYROXINE SODIUM 25 MCG TAB PO SCH (05:46)
[2020-02-08] MEDS: GABAPENTIN 100 MG CAP PO SCH ×3 (05:46→21:58)
[2020-02-08] MEDS: ONDANSETRON HCL 4 MG/2 ML VIAL IV PRN (05:46)
[2020-02-08] MEDS: SUCRALFATE 1 GM/10 ML ORAL SUSP PO SCH ×4 (05:46→21:57)
[2020-02-08] MEDS: LEVOTHYROXINE SODIUM 100 MCG TAB PO SCH (05:47)
--- NOTE | 2020-02-08 07:17 | NUR ---
End of Shift Note Endorsed care to dayshift RN. At this time patient has no s/s of distress or SOB.
--- NOTE | 2020-02-08 08:00 | NUR ---
Opening Shift Note Assumed care of patient, awake, alert, and oriented. No S/S of distress/SOB or pain. Bed in lowest/locked position, bed rails up x2, call light within reach. Instructed on POC and to call for assist PRN. Will continue to monitor for changes Q1hr and PRN.
--- NOTE | 2020-02-08 08:10 | NUR ---
MD ROUNDS DR Codi HASSAN AT BEDSIDE DISCUSSING POC WITH PATIENT. NO NEW ORDERS. WILL CONTINUE TO MONITOR
[2020-02-08] MEDS: FOLIC ACID 1 MG TAB PO SCH ×2 (08:54→21:58)
[2020-02-08] MEDS: PANTOPRAZOLE 40 MG TAB PO SCH ×2 (08:54→21:58)
[2020-02-08] MEDS: FUROSEMIDE 40 MG/4 ML VIAL IV SCH (08:54)
[2020-02-08] MEDS: ASPirin 81 mg TAB PO SCH (08:54)
[2020-02-08] MEDS: CALCIUM W/VIT D (600MG/400IU) TAB PO SCH ×2 (08:55→21:58)
[2020-02-08] MEDS: PARoxetine 20 MG TAB PO SCH (08:55)
[2020-02-08] MEDS: SPIRONOLACTONE 25 MG TAB PO SCH (08:55)
[2020-02-08 08:59] VITALS: BP 150/79
[2020-02-08] MEDS: MORPHINE SULF INJ 2 MG/ML SYRINGE 1ML IV PRN ×2 (11:32→21:58)
[2020-02-08 14:10] VITALS: BP 133/73
[2020-02-08 17:00] VITALS: BP 127/64
--- NOTE | 2020-02-08 17:02 | NUR ---
DIET PATIENT TOLERATING FULL LIQUID DIET. ADVANCED SOFT DIET FOR DINNER PER MD ORDERS
[2020-02-08 22:00] VITALS: BP 123/70
[2020-02-09 05:20] VITALS: BP 112/75
[2020-02-09] MEDS: SUCRALFATE 1 GM/10 ML ORAL SUSP PO SCH ×2 (06:08→11:00)
[2020-02-09] MEDS: LEVOTHYROXINE SODIUM 100 MCG TAB PO SCH (06:08)
[2020-02-09] MEDS: GABAPENTIN 100 MG CAP PO SCH (06:08)
[2020-02-09] MEDS: SODIUM CHLOR 0.9% PF (SALINE LOCK) 10ML VIAL/SYR IV SCH (06:08)
[2020-02-09] MEDS: LEVOTHYROXINE SODIUM 25 MCG TAB PO SCH (06:09)
--- NOTE | 2020-02-09 06:52 | NUR ---
End of Shift Note Will endorse care to dayshift RN. At this time patient has no s/s of distress or SOB.
[2020-02-09] MEDS: MORPHINE SULF INJ 2 MG/ML SYRINGE 1ML IV PRN (08:49)
[2020-02-09 09:00] VITALS: BP 110/65
--- NOTE | 2020-02-09 09:10 | NUR ---
Hospitalist Rounded Dr. Hamlin at bedside.
[2020-02-09] MEDS: ASPirin 81 mg TAB PO SCH (09:55)
[2020-02-09] MEDS: CALCIUM W/VIT D (600MG/400IU) TAB PO SCH (09:56)
[2020-02-09] MEDS: FOLIC ACID 1 MG TAB PO SCH (09:56)
[2020-02-09] MEDS: PANTOPRAZOLE 40 MG TAB PO SCH (09:56)
[2020-02-09] MEDS: SPIRONOLACTONE 25 MG TAB PO SCH (09:56)
[2020-02-09] MEDS: FUROSEMIDE 40 MG/4 ML VIAL IV SCH (09:57)
[2020-02-09] MEDS ORDERED: PARoxetine 20 MG TAB PO SCH (10:00)
[2020-02-09] MEDS: ONDANSETRON HCL 4 MG/2 ML VIAL IV PRN (10:54)
[2020-02-09 11:49] VITALS: BP 110/65
--- NOTE | 2020-02-09 13:00 | NUR ---
Discharge instructions given as ordered. Encourage to follow up with PMD as instructed. All questions and concerns addressed. Patient verbalized understanding. Medication reconciliation form completed and copy given to patient. Home medications held in Pharmacy returned to patient. IV removed with catheter intact and pressure dressing applied. Telemetry unit returned to ICU. Patient taken to vehicle via wheelchair with all personal belongings, accompanied by staff. No distress noted at time of departure.
== END 2020-02-09 02:18 | disposition home or self-care (01) | DRG 434 ==
LOC: ER 19:50 → TELE 19:51 → TELE-CENTR 02-07 05:10
PROVIDERS: ADMIT Nurse Practitioner Family; ATTEND Family Medicine
DX: K74.60 Unspecified cirrhosis of liver (principal); K29.70 Gastritis, unspecified, without bleeding; K57.90 Diverticulosis of intestine, part unspecified, without perforation or abscess without bleeding; M81.0 Age-related osteoporosis without current pathological fracture; E03.9 Hypothyroidism, unspecified; G62.9 Polyneuropathy, unspecified; F32.9 Major depressive disorder, single episode, unspecified; F10.10 Alcohol abuse, uncomplicated; Y90.0 Blood alcohol level of less than 20 mg/100 ml
CPT/HCPCS: 36415; 71045; 72131; 74176; 76705; 80053; 80307; 80320; 81001; 82140; 83735; 83880; 84443; 84484; 85025; 85610; 85730; 93005; 93970; 96374; 96375; C9113; G0378; J2405

== ENCOUNTER 2020-02-15 17:59 | Emergency (ER) | payer MEDICARE, OTHER ==
[~2020-02-15] VITALS: Ht 149.9 cm; Wt 76.2 kg
[2020-02-15 18:27] VITALS: BP 137/84
== END 2020-02-15 18:51 | disposition left against medical advice (07) ==
LOC: ER 17:59 → EDBD 17:59 → ER 18:51
DX: R10.30 Lower abdominal pain, unspecified (principal); Z53.21 Procedure and treatment not carried out due to patient leaving prior to being seen by health care provider
CPT/HCPCS: 93005

== ENCOUNTER 2020-04-02 15:04 | Emergency (ER) | payer MEDICARE, OTHER | END 2020-04-02 19:50 | disposition left against medical advice (07) | LOC: ER 15:04 | DX: R06.02 Shortness of breath (principal); Z53.21 Procedure and treatment not carried out due to patient leaving prior to being seen by health care provider ==